=== PATIENT | female | born 1980 | race Caucasian/White ===

== ENCOUNTER 2022-05-25 07:11 | Emergency (ER) | payer BC ==
[~2022-05-25] VITALS: Ht 165.1 cm; Wt 63.5 kg
== END 2022-05-25 12:51 | disposition home or self-care (01) ==
LOC: ER 07:11
DX: R10.32 Left lower quadrant pain (principal); R16.1 Splenomegaly, not elsewhere classified

== ENCOUNTER 2024-05-18 06:53 | Inpatient (IN) | payer BC ==
[~2024-05-18] VITALS: Ht 162.6 cm; Wt 59.0 kg
[2024-05-18] MEDS ORDERED: VITAMIN D3125 MC1 PO (07:41)
[2024-05-18] MEDS ORDERED: LEVOTHYROXINE100 MCG PO (07:41)
[2024-05-18] MEDS ORDERED: LORAZEPAM1 MG PO (07:41)
[2024-05-18] MEDS ORDERED: VITAMIN C500 M1 PO (07:42)
--- NOTE | 2024-05-18 07:50 | NUR ---
PTE REFEIRE [facility] Y DOLOR EN EL CUERPO Y GARGANTA, PTE CON CA DE TIROIDE YA OPERADA. SE LE JANINE S/V Y SE UBICA EN AMI , YA QUE SE SIENTE MUY DEBIL , SE OBSERVA CON OJOS LEVEMENTE AMARILLOS.
[2024-05-18] MEDS ORDERED: ONDANSETRON HCL 2 MG/ML VIAL IV ONE (08:45)
[2024-05-18] MEDS ORDERED: 0.9 % SODIUM CHLORIDE 1,000 ML IV ONE (08:45)
[2024-05-18] MEDS ORDERED: FAMOtidine 10 MG/ML (4ML VIAL) IV ONE (08:45)
[2024-05-18] MEDS ORDERED: BUTALB/ACETAMINOPHEN/CAFFEINE 1 TAB TABLET PO ONE ×2 (08:45→08:50)
[2024-05-18] MEDS ORDERED: ONDANSETRON HCL 2 MG/ML VIAL ONE (08:50)
--- NOTE | 2024-05-18 08:50 | NUR ---
SE LE ORIENTA A PACIENTE SOBRE LA ORDEN MEDICA, REFIERE ENTENDER LAS MISMAS. SE CANALIZA Y SE LE COLOCA EL IVF'S, SE LE JACOBO LAS MUETRAS Y SE LE ADMINISTRAN LOS MEDICAMENTOS CARA LA ORDEN MEDICA.
[2024-05-18] MEDS ORDERED: FAMOTIDINE/PF 20 MG/2 ML VIAL ONE (08:51)
--- NOTE | 2024-05-18 09:25 | NUR ---
SE REALIZA LABORATORIOS Y SE ADMINISTRA MEDICAMENTOS CARA ORDEN MEDICA BAJO MEDIDAS ASEPTICAS. SE ORIENTA A PTE QUIEN REFIERE ENTENDER Y ACEPTAR.
[2024-05-18 09:26] LABS: HEMATOCRIT 22.8 % (36.0-45.00); HEMOGLOBIN 8.5 g/dL (12.0-15.00); MEAN CELL VOLUME 94.3 fL (80.00-100.00); MEAN CORPUSCULAR HEMOGLOBIN 35.2 pg (27.00-32.0); MEAN CORPUSCULAR HGB CONC 37.3 g/dl (32.0-36.0); PLATELET COUNT 152 K/uL (150-450); RED BLOOD COUNT 2.41 M/uL (4.00-6.00); RED CELL DISTRIBUTION WIDTH 17.7 % (11.5-14.5)
[2024-05-18 10:07] LABS: BILIRUBIN TOTAL 3.42 mg/dL (0.3-1.2); CALCIUM 8.5 mg/dL (8.5-10.1); CREATININE SERUM 0.46 mg/dL (0.55-1.02); GFR 146.9; GLOBULINA 2.9 G/DL (2.4-3.5); POTASSIUM 3.87 mEq/L (3.5-5.1); TOTAL PROTEIN 6.9 gm/dL (6.4-8.2)
--- NOTE | 2024-05-18 15:00 | NUR ---
SE RECIBE PACIENTE ALERTA Y ORIENTADA X 3 ESFERAS EN CAMA CON BARANDAS ELEVADAS POR SEGURIDAD. PRESENTANDO BUEN PATRON RESPIRATORIO. RECIBIENDO IV'S 0.9NSS BAJANDO FULL DRIP POR VENOPUNCION EN BRAZO ADARSH AREA ULISES DE EDEMA Y ERITEMA. PENDIENTE CONSULTA CON . SE MANTIENE EN OBSERVACION POR CAMBIOS.
[2024-05-18] MEDS ORDERED: ACETAMINOPHEN 325 MG TABLET PO PRN (18:15)
[2024-05-18] MEDS ORDERED: ONDANSETRON HCL 4 MG in 0.9 % SODIUM CHLORIDE 50 ML IV PRN (18:15)
[2024-05-18] MEDS ORDERED: 0.9 % SODIUM CHLORIDE 1,000 ML IV SCH (18:15)
[2024-05-18] MEDS ORDERED: KETOROLAC TROMETHAMINE 30 MG VIAL IV PRN (18:15)
[2024-05-18] MEDS ORDERED: PANTOPRAZOLE SODIUM 40 MG/VIAL VIAL IV SCH (21:00)
[2024-05-19] MEDS ORDERED: LEVOTHYROXINE SODIUM 100 MCG TABLET PO SCH (06:00)
[2024-05-19] MEDS ORDERED: FOLIC ACID 1 MG TABLET PO SCH (09:00)
[2024-05-19] MEDS ORDERED: VITAMIN B COMPLEX 1 EACH PO SCH (09:00)
[2024-05-19 12:31] LABS: HEMATOCRIT 25.2 % (36.0-45.00); HEMOGLOBIN 9.1 g/dL (12.0-15.00); MEAN CELL VOLUME 93.4 fL (80.00-100.00); MEAN CORPUSCULAR HEMOGLOBIN 33.8 pg (27.00-32.0); MEAN CORPUSCULAR HGB CONC 36.1 g/dl (32.0-36.0); PLATELET COUNT 158 K/uL (150-450)
[2024-05-19 12:34] LABS: HEMATOCRIT 24.6 % (36.0-45.00); MEAN CELL VOLUME 92.2 fL (80.00-100.00); MEAN CORPUSCULAR HEMOGLOBIN 33.7 pg (27.00-32.0); MEAN CORPUSCULAR HGB CONC 36.5 g/dl (32.0-36.0); PLATELET COUNT 154 K/uL (150-450); RED BLOOD COUNT 2.67 M/uL (4.00-6.00); RED CELL DISTRIBUTION WIDTH 17.1 % (11.5-14.5)
[2024-05-19 13:06] LABS: ALBUMIN 3.5 gm/dL (3.4-5.0); BILIRUBIN TOTAL 3.3 mg/dL (0.3-1.2); BILIRUBIN,CONJUGATED 0.52 mg/dL (0.0-0.2); BILIRUBIN,UNCONJUGATED 2.78 mg/dL (0.0-0.6); CREATININE SERUM 0.39 mg/dL (0.55-1.02); GFR 177.72; POTASSIUM 3.63 mEq/L (3.5-5.1); TOTAL PROTEIN 6.3 gm/dL (6.4-8.2)
== END 2024-05-19 17:20 | disposition left against medical advice (07) | DRG 812 ==
LOC: ER 06:54 → MEDI 18:56
PROVIDERS: General Practice; ADMIT Internal Medicine; ATTEND Internal Medicine
PROC: 30233N1 Transfusion of Nonautologous Red Blood Cells into Peripheral Vein, Percutaneous Approach (ICD-10-PCS; principal; 2024-05-18)
PROC: BW40ZZZ Ultrasonography of Abdomen (ICD-10-PCS; 2024-05-18)
DX: D58.0 Hereditary spherocytosis (principal); D64.9 Anemia, unspecified; Z53.29 Procedure and treatment not carried out because of patient's decision for other reasons; Z20.822 Contact with and (suspected) exposure to COVID-19; R74.01 Elevation of levels of liver transaminase levels; E80.6 Other disorders of bilirubin metabolism